=== PATIENT | male | born 1960 | race Two or more races ===

== ENCOUNTER 2022-04-17 07:32 | Emergency (ER) | payer BC, OTHER ==
[~2022-04-17] VITALS: Ht 180.3 cm; Wt 126.0 kg
[2022-04-17 08:13] LABS: Basophils # (auto) 0 10 ^3/uL (0-0.2); Basophils % (auto) 0.3 % (0.0-2.0); Eosinophils # (auto) 0.1 10 ^3/uL (0-0.8); Eosinophils % (auto) 0.7 % (0.0-7.0); Hematocrit 46.2 % (41.0-53.0); Hemoglobin 15.9 g/dL (13.5-17.5); Lymphocytes # (auto) 1.2 10 ^3/uL (0.4-5.4); Lymphocytes % (auto) 10.1 % (10.0-50.0); Mean Corpuscular Hemoglobin 32.3 pg (28.0-32.0); Mean Corpuscular Hgb Conc. 34.3 g/dL (32.0-36.0); Mean Corpuscular Volume 94.1 fL (80.0-100.0); Monocytes # (auto) 0.9 10 ^3/uL (0-1.3); Neutrophils # (auto) 9.4 10 ^3/uL (1.6-8.6); Neutrophils % (auto) 80.9 % (37.0-80.0); Nucleated Red Blood Cells % 0.2 %; Red Blood Cells 4.92 10^6/uL (4.5-5.90); Red Cell Distribution Width 12.7 % (11.8-14.3); White Blood Cell 11.6 10^3/uL (4.4-10.8)
[2022-04-17] MEDS ORDERED: CEPH-510 PO (09:12)
[2022-04-17] MEDS ORDERED: CLIN300C8 PO (09:12)
[2022-04-17 09:19] LABS: Albumin 3.5 g/dL (3.4-5.0); BUN/Creatinine Ratio 18.2; Bilirubin, Total 0.6 mg/dL (0.2-1.0); Calcium 8.9 mg/dL (8.5-10.1); Potassium 3.8 mmol/L (3.5-5.1)
[2022-04-17 10:00] VITALS: BP 111/72
== END 2022-04-17 10:43 | disposition home or self-care (01) ==
LOC: ER 07:32
DX: L03.116 Cellulitis of left lower limb (principal); I10 Essential (primary) hypertension
CPT/HCPCS: 36415; 80053; 85025; 93971

== ENCOUNTER 2022-04-24 07:39 | Inpatient (IN) | payer BC ==
[~2022-04-24] VITALS: Ht 180.3 cm; Wt 134.3 kg
[~2022-04-24 07:39] MED LIST: CEPH-510 PO; CLIN300C8 PO
[2022-04-24] MEDS ORDERED: VANCOMYCIN 1GM/250ML 250 ML IV ONE (10:30)
[2022-04-24 12:30] LABS: Basophils # (auto) 0 10 ^3/uL (0-0.2); Basophils % (auto) 0.7 % (0.0-2.0); Eosinophils # (auto) 0.3 10 ^3/uL (0-0.8); Eosinophils % (auto) 4.5 % (0.0-7.0); Hemoglobin 15.6 g/dL (13.5-17.5); Lymphocytes # (auto) 1.6 10 ^3/uL (0.4-5.4); Lymphocytes % (auto) 22.5 % (10.0-50.0); Mean Corpuscular Hemoglobin 32.4 pg (28.0-32.0); Mean Corpuscular Hgb Conc. 35.4 g/dL (32.0-36.0); Mean Corpuscular Volume 91.7 fL (80.0-100.0); Monocytes # (auto) 0.6 10 ^3/uL (0-1.3); Monocytes % (auto) 7.9 % (0.0-12.0); Neutrophils # (auto) 4.6 10 ^3/uL (1.6-8.6); Neutrophils % (auto) 64.4 % (37.0-80.0); Nucleated Red Blood Cells % 0.2 %; Red Cell Distribution Width 12.2 % (11.8-14.3); White Blood Cell 7.1 10^3/uL (4.4-10.8)
[2022-04-24] MEDS ORDERED: SIMV-8 PO (13:11)
[2022-04-24] MEDS ORDERED: HYDROcodone-ACET 5/325MG TAB PO PRN (13:15)
[2022-04-24] MEDS ORDERED: ACETAMINOPHEN 325 MG TAB PO PRN (13:15)
[2022-04-24] MEDS ORDERED: MORPHINE SULFATE INJ 2 MG/ml SYRG IV PRN (13:15)
[2022-04-24 13:58] LABS: Cholesterol 150 mg/dL (< 200); HDL Cholesterol 37 mg/dL (40-59); LDL Cholesterol 103 mg/dL (< 100); Triglycerides 184 mg/dL (< 150)
[2022-04-24 15:02] LABS: Albumin 3.2 g/dL (3.4-5.0); BUN/Creatinine Ratio 20.6; Bilirubin, Total 0.5 mg/dL (0.2-1.0); Calcium 8.4 mg/dL (8.5-10.1); Potassium 4.2 mmol/L (3.5-5.1); Total Protein 7.7 g/dL (6.4-8.2)
[2022-04-25] MEDS: CLINDAMYCIN 600MG IV 50 ML IV SCH ×4 (03:17→06:00)
[2022-04-25 06:40] LABS: Basophils # (auto) 0.1 10 ^3/uL (0-0.2); Eosinophils # (auto) 0.4 10 ^3/uL (0-0.8); Eosinophils % (auto) 6.1 % (0.0-7.0); Hematocrit 39.9 % (41.0-53.0); Hemoglobin 13.8 g/dL (13.5-17.5); Lymphocytes # (auto) 1.5 10 ^3/uL (0.4-5.4); Lymphocytes % (auto) 22.4 % (10.0-50.0); Mean Corpuscular Hemoglobin 33.2 pg (28.0-32.0); Mean Corpuscular Hgb Conc. 34.6 g/dL (32.0-36.0); Mean Corpuscular Volume 95.9 fL (80.0-100.0); Monocytes # (auto) 0.7 10 ^3/uL (0-1.3); Monocytes % (auto) 9.9 % (0.0-12.0); Neutrophils # (auto) 4.1 10 ^3/uL (1.6-8.6); Neutrophils % (auto) 60.6 % (37.0-80.0); Red Blood Cells 4.17 10^6/uL (4.5-5.90); Red Cell Distribution Width 12.2 % (11.8-14.3); White Blood Cell 6.8 10^3/uL (4.4-10.8)
[2022-04-25 07:01] LABS: Albumin 2.6 g/dL (3.4-5.0); Calcium 8.4 mg/dL (8.5-10.1); Potassium 3.4 mmol/L (3.5-5.1)
[2022-04-25 07:03] LABS: BUN/Creatinine Ratio 19.6
[2022-04-25 07:05] LABS: Bilirubin, Total 0.3 mg/dL (0.2-1.0); Total Protein 6.9 g/dL (6.4-8.2)
[2022-04-25] MEDS: cefTRIAXone 1GM/50ML D5W 50 ML IV SCH (10:41)
[2022-04-25] MEDS: ENOXAPARIN SOD 40 MG/0.4 ML SYRINGE SC SCH (10:42)
[2022-04-25] MEDS: CLINDAMYCIN 300MG IV 50 ML IV SCH ×2 (14:56→21:39)
[2022-04-25 15:18] VITALS: BP 120/63
[2022-04-25 16:00] VITALS: BP 120/62
[2022-04-25] MEDS ORDERED: TRAM50TA2 PO (16:24)
[2022-04-25] MEDS ORDERED: LOSA100T33 PO (16:29)
[2022-04-25 20:00] VITALS: BP 122/64
[2022-04-25 22:00] VITALS: BP 106/51
[2022-04-25] MEDS ORDERED: ATORVASTATIN 20 MG TAB PO SCH (22:00)
[2022-04-26 05:09] VITALS: BP 138/83
[2022-04-26] MEDS: CLINDAMYCIN 300MG IV 50 ML IV SCH (06:00)
[2022-04-26 08:00] VITALS: BP 122/64
[2022-04-26 08:30] VITALS: BP 115/77
[2022-04-26] MEDS: ENOXAPARIN SOD 40 MG/0.4 ML SYRINGE SC SCH (10:48)
[2022-04-26] MEDS: cefTRIAXone 1GM/50ML D5W 50 ML IV SCH (10:49)
[2022-04-26] MEDS ORDERED: SACC1CAP3 PO (11:56)
[2022-04-26] MEDS ORDERED: CLIN300C8 PO (11:56)
[2022-04-26 12:30] VITALS: BP 126/81
[2022-04-26 12:38] VITALS: BP 115/77
[2022-04-26] MEDS ORDERED: POTASSIUM CHL 20 Meq TABLET PO ONE (13:30)
== END 2022-04-26 14:10 | disposition home or self-care (01) | DRG 603 ==
LOC: ER 07:39 → OVERFLOW 13:10 → WEST WING 04-25 15:21
PROVIDERS: ADMIT Registered Nurse; ATTEND Nurse Practitioner Acute Care
DX: L03.116 Cellulitis of left lower limb (principal); Z68.41 Body mass index [BMI] 40.0-44.9, adult; E66.01 Morbid (severe) obesity due to excess calories; I10 Essential (primary) hypertension; G89.29 Other chronic pain; E78.5 Hyperlipidemia, unspecified; Z79.891 Long term (current) use of opiate analgesic; M54.9 Dorsalgia, unspecified; Z20.822 Contact with and (suspected) exposure to COVID-19
CPT/HCPCS: 36415; 73700; 80053; 80061; 83036; 83605; 84443; 85025; 87040; 87081; 87426; 93306; 93926; 93971; G0378; J0696; J3490